=== PATIENT | female | born 1960 | race Caucasian/White ===

== ENCOUNTER 2017-03-12 17:50 | Emergency (ER) | payer OTHER ==
--- NOTE | 2017-03-12 18:16 | CPEKG ---
Heart Rate: 62 RR Interval: 968 P-R Interval: 184 QRSD Interval: 92 QT Interval: 404 QTC Interval: 411 P Center: 52 QRS Center: 15 T Wave Center: 16 EKG Severity - ABNORMAL ECG - EKG Impression: SINUS RHYTHM EKG Impression: PROBABLE INFERIOR INFARCT, AGE INDETERMINATE EKG Impression: BORDERLINE R WAVE PROGRESSION, ANTERIOR LEADS Electronically Signed By: Eron Johnston 12-Mar-2017 18:17:48
--- NOTE | 2017-03-12 18:31 | EDPHY ---
H & P Stated Complaint: Jaw Pain and Chest Pain Source: Patient Exam Limitations: No limitations - Personal History Current Tetanus Diphtheria and Acellular Pertussis (TDAP): Yes - Medical/Surgical History Hx Asthma: No Hx Chronic Respiratory Disease: No Hx Diabetes: No Hx Cardiac Disease: No Hx Renal Disease: No Hx Cirrhosis: No Hx Alcoholism: No Hx HIV/AIDS: No Hx Splenectomy or Spleen Trauma: No Other PMH: Glaucoma, "Muscle Chest Pain Spasms" - Family History Significant Family History: No pertinent family hx - Social History Smoking Status: Never smoked Alcohol Use: Sober Drug Use: None Time Seen by Provider: 03/12/17 18:16 HPI/ROS: CHIEF COMPLAINT: Upper chest and jaw pain HISTORY OF PRESENT ILLNESS: Patient is a 48-year-old female who comes to the emergency department complaining of upper chest and jaw pain that began about 2 hr ago. She took aspirin and nitroglycerin home without improvement. She has had these symptoms multiple times in the past usually associated with stress. She had it much more frequently years ago when she was but since has gotten and it rarely happens now. She had a catheterization of her heart during 1 of these workups that was negative but that was 20 years ago. She was at [facility] yesterday complaining of epigastric pain radiating to both right and left upper quadrant. She had 2 EKGs that were negative. She had an ultrasound that revealed gallstones but no sign of cholecystitis. She did have elevated LFTs which she was advised to follow up with. Her symptoms resolved and she was able to go home. About 24 hrs later is when her chest pain began. She denies shortness of breath. She denies nausea vomiting. She denies any recurrence of her epigastric pain. No recent travel. No swelling. No smoking. No surgeries. No hormones. REVIEW OF SYSTEMS: Constitutional: denies: chills, fever, recent illness, recent injury EENTM: denies: blurred vision, double vision, nose congestion Respiratory: denies: cough, shortness of breath Cardiac: See HPI Gastrointestinal/Abdominal: See HPI Genitourinary: denies: dysuria, frequency, hematuria, pain Musculoskeletal: denies: joint pain, muscle pain Skin: denies: lesions, rash, jaundice, bruising Neurological: denies: headache, numbness, paresthesia, tingling, dizziness, weakness Hematologic/Lymphatic: denies: blood clots, easy bleeding, easy bruising Immunologic/allergic: denies: HIV/AIDS, transplant EXAM: GENERAL: Well-appearing, overweight and in no acute distress. HEAD: Atraumatic, normocephalic. EYES: Pupils equal round and reactive to light, extraocular movements intact, sclera anicteric, conjunctiva are normal. ENT: TMs normal, nares patent, oropharynx clear without exudates. Moist mucous membranes. NECK: Normal range of motion, supple without lymphadenopathy or JVD. LUNGS: Breath sounds clear to auscultation bilaterally and equal. No wheezes rales or rhonchi. HEART: Regular rate and rhythm without murmurs, rubs or gallops. ABDOMEN: Soft, nontender, normoactive bowel sounds. No guarding, no rebound. No masses appreciated. BACK: No CVA tenderness, no spinal tenderness, step-offs or deformities EXTREMITIES: Normal range of motion, no pitting or edema. No clubbing or cyanosis. NEUROLOGICAL: Cranial nerves II through XII grossly intact. Normal speech, normal gait. 5/5 strength, normal movement in all extremities, normal sensation PSYCH: Normal mood, normal affect. SKIN: Warm, dry, normal turgor, no visible rashes or lesions. (Eron Johnston) Constitutional: Initial Vital Signs Temperature (C) 36.7 C 03/12/17 17:58 Heart Rate 74 03/12/17 17:58 Respiratory Rate 18 12 17:58 Blood Pressure 164/97 H 03/12/17 17:58 O2 Sat (%) 96 03/12/17 17:58 O2 Delivery Mode Room Air Allergies/Adverse Reactions: acetaminophen [From Vicodin] Allergy (Verified 03/12/17 17:57) alprazolam [From Xanax] Allergy (Verified 03/12/17 17:57) codeine Allergy (Verified 03/12/17 17:57) diazepam [From Valium] Allergy (Verified 03/12/17 17:57) erythromycin base Allergy (Verified 03/12/17 17:57) hydrocodone [From Vicodin] Allergy (Verified 03/12/17 17:57) morphine Allergy (Verified 03/12/17 17:57) Penicillins Allergy (Verified 12/08/17 17:57) Sulfa (Sulfonamide Antibiotics) Allergy (Verified 03/12/17 17:57) Home Medications: Medication Instructions Recorded Dorzolamide-Timolol Eye Drops 03/12/17 Medical Decision Making - Diagnostics Imaging: Discussed imaging studies w/ control systems drafting officer Radiologist - Diagnostics EKG Interpretation: An EKG obtained and was read and documented in trace view. Please see trace view for full reading and report. Sinus rhythm, no acute ischemic changes ( Eron Johnston) ED Course/Re-evaluation: 2318: Patient's repeat troponin is negative. I did go Greet the patient and evaluate her. She is resting comfortably without any chest pain. She understands follow-up with primary care doctor. Return emergency room if there is any worsening symptoms questions or concerns. I have given her return precautions he understands return emergency room if develops chest pain shortness of breath or worsening symptoms. (Johann Benson) 8:45 p.m. the patient's symptoms have completely resolved. We did discuss her elevated LFTs. I was able to obtain her LFTs from [facility] on the . At that time her AST was 268 and her ALT was 224. Her CT scan revealed a fatty liver but no other abnormalities. She had a normal ultrasound yesterday other than gallstones. She is currently not having any liver pain. She states that she is to follow up with her primary on Wednesday for repeat testing there. She does not wish to have further testing at this point for her liver. We also discussed her negative CT lab work. Initially she was eager to go home but we discussed the limitations of a single troponin. She had only had pain for about an hour before arrival. She did eventually agree to repeat 4 hr troponin which will be at around 10:30 p.m.. I will transfer her care to the Dr. Johann Benson (Eron Johnston) Differential Diagnosis: Partial list of the Differential diagnosis considered include but were not limited to; acute coronary disease, PE, pneumonia, hepatitis and although unlikely based on the history and physical exam, I also considered biliary disease, obstructive gallstone, peptic ulcer disease. (Eron Johnston) - Data Points Laboratory Results: Laboratory Results 03/12/17 18:25 03/12/17 18:25 Departure - Departure Disposition: Home, Routine, Self-Care Clinical Impression: Elevated liver enzymes Chest pain Qualifiers: Chest pain type: unspecified Qualified Code(s): R07.9 - Chest pain, unspecified Condition: Good Instructions: Chest Pain (ED) Additional Instructions: 1. Return emergency room if develops worsening symptoms questions or concerns includes worsening chest pain shortness of breath abdominal pain fever or vomiting. 2. Please follow up with your primary care doctor. Referrals: ABHIJIT KO [Other] - As per Instructions
[2017-03-12 18:37] LABS: % IMMATURE GRANULYOCYTES 0.3 % (0.0-1.1); ABSOLUTE IMMATURE GRANULOCYTES 0.02 10^3/uL (0.00-0.10); ADD DIFF? NO; ADD MORPH? NO; ADD SCAN? NO; ATYPICAL LYMPHOCYTE FLAG 0 (0-99); FRAGMENT RBC FLAG 0 (0-99); HEMATOCRIT 43.5 % (38.0-47.0); HEMOGLOBIN 15.3 g/dL (12.6-16.3); LEFT SHIFT FLG 10 (0-99); LIPEMIA HEMOLYSIS FLAG 90 (0-99); MEAN CELL HEMOGLOBIN 30.6 pg (27.9-34.1); MEAN CELL HEMOGLOBIN CONCENTR. 35.2 g/dL (32.4-36.7); MEAN PLATELET VOLUME 9.5 fL (8.7-11.7); PLATELET CLUMPS FLAG 20 (0-99); PLATELET COUNT 283 10^3/uL (150-400)
[2017-03-12 18:42] LABS: ALANINE AMINOTRANSFERASE 549 IU/L (9-52); ALBUMIN 4.3 g/dL (3.5-5.0); ALKALINE PHOSPHATASE 101 IU/L (38-126); ANION GAP 12 mEq/L (8-16); ASPARTATE AMINOTRANSFERASE 293 IU/L (14-46); BILIRUBIN,TOTAL 0.9 mg/dL (0.1-1.4); BILIRUBIN-CONJUGATED 0.5 mg/dL (0.0-0.5); BILIRUBIN-UNCONJUGATED 0.4 mg/dL (0.0-1.1); CALCIUM 9.6 mg/dL (8.5-10.4); CARBON DIOXIDE 26 mEq/l (22-31); CHLORIDE 102 mEq/L (97-110); CREATININE 0.9 mg/dL (0.6-1.0); GLOMERULAR FILTRATION RATE > 60; GLUCOSE 89 mg/dL (70-100); POTASSIUM 3.7 mEq/L (3.5-5.2); SODIUM 140 mEq/L (134-144); TOTAL PROTEIN 7.2 g/dL (6.3-8.2)
[2017-03-12 18:46] LABS: INR 0.98 (0.83-1.16); PROTIME(PATIENT) 13.2 SEC (12.0-15.0)
[2017-03-12 18:47] LABS: APTT 33.3 SEC (23.0-38.0)
[2017-03-12 18:53] LABS: TROPONIN I < 0.012 ng/mL (0.000-0.034)
[2017-03-12 23:31] VITALS: BP 123/76; PULSE 76; RESP 17; TEMP 97.9; O2SAT 92
== END 2017-03-12 23:30 | disposition home or self-care (01) ==
DX: R07.9 Chest pain, unspecified (principal); R94.5 Abnormal results of liver function studies